=== PATIENT | male | born 1965 | race African-American/Black ===

== ENCOUNTER 2023-12-10 14:24 | Emergency (ER) | payer OTHER ==
[2023-12-10 14:32] VITALS: BP 97/58; PULSE 79; RESP 20; TEMP 97.6; BMI 33.3
== END 2023-12-10 15:41 | disposition home or self-care (01) ==
LOC: JERFT 14:24
DX: R21 Rash and other nonspecific skin eruption (principal)
CPT/HCPCS: 99283-25

== ENCOUNTER 2024-02-06 17:31 | Emergency (ER) | payer OTHER ==
[2024-02-06 17:50] VITALS: BP 112/71; PULSE 101; RESP 17; TEMP 99.9; BMI 32.3
[2024-02-06] MEDS ORDERED: ACETAMINOPHEN 325 MG TABLET (FP) ONE (18:30)
[2024-02-06] MEDS: ACETAMINOPHEN 325 MG TABLET (FP) PO ONE (18:31)
[2024-02-06 19:49] LABS: HIV INTERPRETATION NEGATIVE (NEGATIVE)
== END 2024-02-06 18:46 | disposition home or self-care (01) ==
LOC: JER 17:31 → JERFT 17:31
DX: U07.1 COVID-19 (principal); R50.9 Fever, unspecified; R09.81 Nasal congestion; R05.9 Cough, unspecified; R06.02 Shortness of breath; R00.0 Tachycardia, unspecified
CPT/HCPCS: 0241U-QW; 36415; 86803; 87389; 99283-25